=== PATIENT | female | born 1960 | race African-American/Black ===

== ENCOUNTER → 2017-08-07 | Outpatient (CLI) | payer OTHER ==
[2017-08-08 12:04] LABS: BASOPHIL % 0.2 % (0-2); PLATELET COUNT 307 x10^3mcL (130-400)
[2017-08-08 12:22] LABS: ALBUMIN 3.7 g/dL (3.4-5.0); ALKALINE PHOSPHATASE 79 U/L (46-116); ALT/SGPT 22 U/L (14-59); AST/SGOT 19 U/L (15-37); BILIRUBIN TOTAL 0.43 mg/dL (0.20-1.00); CALCIUM 8.9 mg/dL (8.5-10.1); CARBON DIOXIDE 28.3 mmol/L (21-32); CHLORIDE SERUM 103 mmol/L (98-107); CHOLESTEROL 168 mg/dL (<200); CREATININE SERUM 0.7 mg/dL (0.6-1.0); FREE T4 0.83 ng/dL (0.76-1.46); GFR1 > 60 mL/min; GLUCOSE SERUM 100 mg/dL (74-106); POTASSIUM SERUM 3.8 mmol/L (3.5-5.1); SODIUM SERUM 139 mmol/L (136-145); TOTAL PROTEIN, SERUM 7.3 g/dL (6.4-8.2); TRIGLYCERIDES 86 mg/dL (<150)
[2017-08-08 12:28] LABS: CHOLESTEROL/HDL RATIO 2.6; HDL CHOLESTEROL 65 mg/dL (40-60)
== END | disposition home or self-care (01) ==
LOC: MA 10:30
PROVIDERS: Student in an Organized Health Care Education/Training Program
PROC: BH02ZZZ Plain Radiography of Bilateral Breasts (ICD-10-PCS; principal; 2017-08-07)
PROC: B54BZZZ Ultrasonography of Right Lower Extremity Veins (ICD-10-PCS; 2017-08-07)
DX: Z00.00 Encounter for general adult medical examination without abnormal findings (principal); M25.471 Effusion, right ankle; T73.3XXA Exhaustion due to excessive exertion, initial encounter; Z12.31 Encounter for screening mammogram for malignant neoplasm of breast
CPT/HCPCS: 77067; 84439